=== PATIENT | male | born 1950 | race Caucasian/White ===

== ENCOUNTER 2018-04-14 11:20 | Inpatient (IN) | payer OTHER ==
--- NOTE | 2018-04-14 11:50 | PDOC ---
History of Present Illness - General Stated Complaint: Blood Pressure Problem Time Seen by Provider: 04/14/18 11:47 History Source: EMS Exam Limitations: Clinical Condition (pt mumbling, repetitive speech, will not answer questions (new non-verbal from baseline)) - History of Present Illness Initial Comments: Pt coming from [facility], presenting with AMS and is newly non-verbal. According to EMS, pt was last seen normal last night during medication rounds, and was discovered with AMS this AM (last documented normal by nursing staff night of 04/11). Limited history as pt is non-verbal. Family at bedside. states he was "normal" and verbalizing with no issues yesterday when she spoke to him on the phone at 4pm. She states his abdomen looks mildly distended, but she has not seen him for several weeks since [facility] has [facility] the [facility]. 04/14/18 15:50 Past History - Travel Traveled outside of the country in the last 30 days: No Close contact w/someone who was outside of country & ill: No - Past Medical History Allergies/Adverse Reactions: Allergies Allergy/AdvReac Type Severity Reaction Status Date / Time aripiprazole [From Abilify] Allergy Verified 04/14/18 12:48 chlorpromazine Allergy Verified 04/14/18 12:48 lamotrigine Allergy Verified 04/14/18 12:48 methadone Allergy Verified 04/14/18 12:48 olanzapine Allergy Verified 04/14/18 12:48 quetiapine [From Seroquel] Allergy Verified 04/14/18 12:48 ziprasidone Allergy Verified 04/14/18 12:48 Home Medications: Ambulatory Orders Amantadine HCl [Symmetrel -] 100 mg PO BID 04/14/18 Aspirin 81 mg PO DAILY 04/14/18 Bupropion HCl [Wellbutrin Xl] 300 mg PO DAILY 04/14/18 Calcium Carbonate/Vitamin D3 [Oyster Shell 500-Vit D3 200 Tb] 1 each PO BID 10/25 Carbidopa/Levodopa *Cr* 50/200 [Sinemet *Cr* 50/200 -] 1 combo PO TID 04/14/18 Ciprofloxacin HCl [Cipro] 500 mg PO BID 04/14/18 Docusate Sodium [Colace] 100 mg PO DAILY 04/14/18 Enalapril Maleate [Vasotec] 10 mg PO DAILY 04/14/18 Fenofibrate Nanocrystallized [Fenofibrate] 160 mg PO DAILY 04/14/18 Gabapentin 300 mg PO TID 04/14/18 Glipizide 10 mg PO DAILY 04/14/18 Magnesium Hydroxide [Milk of Magnesia] 400 mg PO PRN 04/14/18 Metoprolol Tartrate [Lopressor] 50 mg PO BID 04/14/18 Ranitidine HCl [Zantac] 150 mg PO HS 04/14/18 Rivastigmine Tartrate [Rivastigmine] 3 mg PO BID 04/14/18 Review of Systems - Review of Systems Able to Perform ROS?: No (AMS, unable to obtain) Is the patient limited Irish proficient: No *Physical Exam - Physical Exam General Appearance: Yes: Nourished, Appropriately Dressed, Moderate Distress ( Pt non-verbal, appears agitated and diaphoretic. Became hypotensive (90s/70s)), Obese. No: Alcohol on Breath, Intoxicated HEENT: positive: EOMI, ALYSHA, Normal ENT Inspection, Symmetrical, TMs Normal, Pharynx Normal, Hearing Grossly Normal. negative: Normal Voice (pt has minimal speech), Scleral Icterus (R), Scleral Icterus (L), Pharyngeal Erythema, Tonsillar Exudate, Tonsillar Erythema, Nasal Congestion, Rhinorrhea, Hearing Decreased, TM Bulging, TM Dull, TM Erythema Neck: positive: Trachea midline, Normal Thyroid, Supple. negative: Tender, Rigid, Lymphadenopathy (R), Lymphadenopathy (L), Rigidity Respiratory/Chest: positive: Lungs Clear, Normal Breath Sounds. negative: Chest Tender, Respiratory Distress, Accessory Muscle Use, Decreased Breath Sounds, Crackles, Wheezing Cardiovascular: positive: Regular Rhythm, Regular Rate, S1, S2. negative: Edema , JVD, Murmur Vascular Pulses: Carotid (R): 4+, Carotid (L): 4+ Gastrointestinal/Abdominal: positive: Normal Bowel Sounds, Soft, Protuberent, Hernia (large abdominal hernia, observed when pt sitting up, easily compressible ). negative: Tender, Flat, Organomegaly, Pulsatile Mass, Guarding, Rebound, Mass Male Genitalia: positive: normal genitalia. negative: discharge Rectal Exam: positive: deferred Lymphatic: negative: Adenopathy, Tenderness Musculoskeletal: positive: Normal Inspection. negative: CVA Tenderness, Decreased Range of Motion, Vertebral Tenderness Extremity: positive: Normal Capillary Refill, Normal Inspection, Normal Range of Motion, Pelvis Stable. negative: Tender, Pedal Edema, Calf Tenderness, Erythema Integumentary: positive: Normal Color, Warm, Diaphoresis (diaphoretic face). negative: Dry, Erythema, Jaundice, Ecchymosis Neurologic: positive: assembler product II-XII NML intact (pt can follow commands, assembler product grossly intact), Alert, Normal Response, Motor Strength 5/5. negative: Fully Oriented, Normal Mood/Affect (parroting some phrases, minimally verbal, but responds apporpriately to yes/no questions), EOM Palsy, Facial Droop, Sensory Deficit ED Treatment Course - LABORATORY CBC & Chemistry Diagram: 04/14/18 12:05 04/14/18 12:05 Medical Decision Making - Medical Decision Making Pt was seen at bedside, also will be seen by attending Dr. Garland. Pt coming from [facility], presenting with AMS and is newly non-verbal. According to EMS, pt was last seen normal last night during medication rounds, and was discovered with AMS this AM (last documented normal by nursing staff night of 04/11). Limited history as pt is non-verbal. PE showed hypotension (BP 92/79), rectal temp 99.7. Pt very diaphoretic and agitated. Pt will mumble and shake his head yes/no to questions. He also follows commands (moving extremities, motor strength intact). Pt denies any abdominal tenderness and does not grimace with palpation. Abdominal hernia, which is easily compressible, no abdominal wall ecchymosis. Considering stroke (due to aphasia) vs infectious causes (UTI) vs abdominal pathology (obstruction, bleed). Ordered work-up including sepsis work-up (blood/urine cultures, CBC, CMP, lactic , coags, UA), type & screen, chest x-ray, and head CT non-contrast. Provided 2 L NS and 1 g ofirmev for improvement of fever, potential sepsis. Will continue to reassess pt and monitor for symptomatic improvement. 04/14/18 12:04 Chest x-ray portable at bedside. Labs drawn and sent to lab, pending results. Pt will be taken to head CT scan non-contrast. ECG showed normal sinus rhythm, normal intervals, HR 83 04/14/18 12:10 Straight cath placed for UA and culture. 11/05/18 12:36 CBC WNL. CMP showed glucose 128, trop <.02. 04/14/18 12:44 [id number] RAD/CHEST X-RAY PORTABLE* Portable chest: Cardiomegaly 2 AP views of the chest reveal a prominent mediastinum with clear lungs and sharp angles. Soft tissues are intact. There are degenerative changes. Correlation recommended. 04/14/18 13:34 Labs generally benign. Nursing staff will perform straight catheter for UA sample. Pt being taken for CT abd/pelvis with IV contrast to r/o bleed or obstruction, as pt abdomen distended. Pt is poor historian (limited verbal). 04/14/18 14:05 CT head showed no global atrophy and chronic changes, no acute pathology. 04/14/18 14:27 CT abd/pelvis will be completed without contrast, as radiology refused to use contrast without family members consent. Pt is presenting ac[facility] ill from prison with no family members present. 04/14/18 14:33 Blood type O+ 04/14/18 14:41 Family at bedside. states he was "normal" and verbalizing with no issues yesterday when she spoke to him on the phone at 4pm. She states his abdomen looks mildly distended, but she has not seen him for several weeks since he has been at the prison. Pending results of CT abd/pelvis. Dr. Serrato performing bedside US now. Unable to obtain UA sample at this time, as pt fighting straight catheter. Pt provided 2 L IV fluids, will continue to monitor for urine output. 04/14/18 15:[address] Renata Klein for admission. Bedside US showed abdominal hernia, but no free fluid. 04/14/18 15:[address] Klein who will admit to inpatient floor. Starting 1 g Ceftriaxone IV for UTI coverage. 04/14/18 16:01 [id number] CT/ABDOMEN & PELVIS CT W/O CONTR Change in mental status. Hypotensive. Rule out bleed CT scan of the abdomen pelvis without oral and intravenous contrast Coronal and sagittal reformatted images were obtained No prior is available for comparison. There are mild atelectatic changes in lingular segment of the left upper lobe and in the right middle lobe. There are also mild the bibasal atelectatic changes and a trace of bilateral pleural effusion. The heart is within normal limits in size The liver is enlarged measuring 21.5 cm in craniocaudal length with mild decrease in attenuation suggestive of a fatty liver. Patient is status post cholecystectomy. Evaluation of the spleen and pancreas appear unremarkable. Nondistended stomach limiting evaluation of its wall. Both adrenal glands are within normal limits in size with an approximately 4 mm calcific density in the right adrenal gland which is nonspecific. There is a punctate nonobstructing stone in the right mid kidney, axial image 72. Another punctate nonobstructing stone is seen in its lower pole. Both kidneys appear otherwise unremarkable without evidence of hydroureteronephrosis or ureteral stone, bilaterally. Moderately distended urinary bladder without wall thickening. There is no evidence of small bowel obstruction. Normal-appearing terminal ileum and appendix. Normal stool burden in the colon without wall thickening. Perirectal and pericecal fat are clear . No free air, free fluid or enlarged lymph nodes are identified. Normal size abdominal aorta with tiny calcific atheromatous plaques present. Note is made of a small fatcontaining umbilical hernia. Visualized osseous structures appear intact with mild degenerative disc disease at L5-S1 level. There is mild compression of T11 vertebral body, likely chronic with anterior spondylosis at T11-T12 level and moderate degenerative disc disease. Impression: Hepatomegaly with suggestion of hepatic steatosis. 2 tiny punctate nonobstructing right renal stones. Status post cholecystectomy. Small fat-containing umbilical hernia. No CT evidence of an acute process in the abdomen and pelvis. There is a trace of bilateral pleural effusion as well as mild atelectatic changes in included portion of the right middle lobe and lingular segment of the left upper lobe. 04/15/18 11:56 *DC/Admit/Observation/Transfer Diagnosis at time of Disposition: Altered mental status Qualifiers: Altered mental status type: unspecified Qualified Code(s): R41.82 - Altered mental status, unspecified Hypotension Qualifiers: Hypotension type: other hypotension type Qualified Code(s): I95.89 - Other hypotension - Discharge Dispostion Condition at time of disposition: Stable Decision to Admit order: Yes - Referrals - Patient Instructions - Post Discharge Activity
--- NOTE | 2018-04-14 11:57 | PDOC ---
Attending Attestation - Resident Resident Name: Ofelia Ohara - ED Attending Attestation I have performed the following: I have examined & evaluated the patient, The case was reviewed & discussed with the resident, I agree w/resident's findings & plan, Exceptions are as noted - Medical Decision Making 04/14/18 12:26 68y M hx of hypertension, CAD, GERD, vascular dementia presents from [facility] for evluation of AMS - per NH staff, pt was noted to be changed in his mental status recently. Upon arrival, pt grunts/mumbles but seems to be responding appropriately to commands. Non verbal currently (at baseline he is verbal). nonfocal neuro exam. no complaints of pain or discomfort, but unlear how reliable historian is ddx - cva, metabolic derangement, occult infection, schizophrenia will obtain blood worik, ct head, ua will reassess 04/14/18 13:26 A portion of this note was documented by scribe services under my direction. I have reviewed the details of the note, within reason, and agree with the documentation with the following case summary and management plan written by me 04/14/18 13:55 pts albs reviewed pt abd slightly protuberent, and he seems to moan more when i press on it - will obtain CT of abdomen <Derian Garland - Last Filed: 04/14/18 13:55> - HPI HPI: 04/14/18 13:46 " The patient is a 68 year old male, Full-Code, with a significant past medical history of hypertension, CAD, GERD, vascular dementia with behavioral disturbance, Parkinson's disease, schizophrenia, diabetes, who presents to the emergency department via ems from [facility] for concern of altered mental status with last known well being Saturday. As per nursing staff, the patient walks and is verbal at baseline, and was not verbally responding today. However, the onset of AMS is unclear because as per nursing staff from [facility] the patient seemed well last night when given his nightly medications but there is no documented verbal assessment. - Physicial Exam PE: 04/14/18 13:46 GENERAL: (+) The patient is mildly diaphoretic, awake, alert. Nontoxic - in no acute distress. mumbles in response to questions HEAD: Normocephalic, atraumatic. EYES: extraocular movements intact, sclera anicteric, conjunctiva clear. ENT: Normal voice, Moist mucous membranes. NECK: Normal range of motion, supple LUNGS: Breath sounds equal, clear to auscultation bilaterally. No wheezes, no rhonchi, no rales. HEART: Regular rate and rhythm, without murmur, rub or gallop. ABDOMEN: (+) obese. Soft, nontender, No guarding, no rebound. No CVA tenderness EXTREMITIES: Normal range of motion, trace edema, no calf tenderness NEUROLOGICAL: (+)Grunting with selective and appropriate speech. No facial assymetry, moving all 4 extremities spontaneously and symmetrically. PSYCH: unable to assess SKIN: Warm, Dry, normal turgor - Medical Decision Making 04/14/18 13:47 Documentation prepared by Nayely Zapata, acting as medical registrar for Derian Garland MD EXAM#: TYPE/EXAM: RESULT: [id number] RAD/CHEST X-RAY PORTABLE* Portable chest: Cardiomegaly 2 AP views of the chest reveal a prominent mediastinum with clear lungs and sharp angles. Soft tissues are intact. There are degenerative changes. Correlation recommended. Reported By: Gold Valles MD 04/14/18 1322 EXAM#: TYPE/EXAM: RESULT: [id number] CT/HEAD CT WITHOUT CONTRAST Cranial CT without contrast IMPRESSION: No CT evidence of acute intracranial pathology. Reported By: Alfredo Aguirre MD 04/14/18 1418 04/14/18 15:50 <Nayely Zapata - Last Filed: 04/14/18 15:50> Heart Score/ECG Review - ECG Impressions Comment:: 04/14/18 13:25 Twelve-lead EKG was performed and reviewed by me. There is normal sinus rhythm with a normal rate. Rate of 83 The axis is normal. The intervals are normal. There is normal R wave progression There are no ST or T wave abnormalities. Impression: Normal twelve-lead EKG <Derian Garland - Last Filed: 04/14/18 13:55>
[2018-04-14] MEDS ORDERED: SODIUM CHLORIDE 2,000 ML IV STA (12:10)
[2018-04-14 12:13] LABS: BASO % 1.2 % (0-2.0); EOS % 5.9 % (0-4.5); HEMATOCRIT 38.4 % (35.4-49); HEMOGLOBIN 13.4 GM/dL (11.7-16.9); LYMPH % 24.2 % (8-40); MCH 32.2 pg (25.7-33.7); MCHC 34.9 g/dl (32.0-35.9); MEAN CELL VOLUME 92.3 fl (80-96); MEAN PLT VOLUME 10.4 fl (7.5-11.1); MONO % 12.2 % (3.8-10.2); NEUT % 56.5 % (42.8-82.8); PLATELET COUNT 237 K/MM3 (134-434); RBC 4.17 M/mm3 (4.00-5.60); RDW 13.8 % (11.9-15.9)
[2018-04-14 12:40] LABS: ALBUMIN 3.6 g/dl (3.4-5.0); ALK PHOS 72 U/L (45-117); ANION GAP 9 MMOL/L (8-16); BILIRUBIN,TOTAL 0.7 mg/dL (0.2-1); BLOOD UREA NITROGEN 20 mg/dL (7-18); CALCIUM 9.3 mg/dL (8.5-10.1); CHLORIDE 106 mmol/L (98-107); CO2 25 mmol/L (21-32); CREATININE 1.1 mg/dL (0.55-1.3); GLUCOSE,RANDOM 128 mg/dL (74-106); PHOSPHOROUS 2.2 mg/dL (2.5-4.9); POTASSIUM 4.1 mmol/L (3.5-5.1); SGOT/AST 35 U/L (15-37); SGPT/ALT 13 U/L (13-61); SODIUM 140 mmol/L (136-145); TOT PROT 6.5 g/dl (6.4-8.2)
[2018-04-14] MEDS ORDERED: ACETAMINOPHEN 1000 MG/100 ML VIAL (NON FORMULARY) IVPB ONE (13:34)
[2018-04-14] MEDS ORDERED: ACETAMINOPHEN INJECTION 100 ML IVPB ONE (13:47)
--- NOTE | 2018-04-14 14:39 | EKG ---
Test Reason : Blood Pressure : / mmHG Vent. Rate : 083 BPM Atrial Rate : 083 BPM P-R Int : 194 ms QRS Dur : 082 ms QT Int : 356 ms P-R-T Axes : 062 048 042 degrees QTc Int : 418 ms NORMAL SINUS RHYTHM NORMAL ECG NO PREVIOUS ECGS AVAILABLE Confirmed by MICAH SEPULVEDA MD ([id number]) on 04/14/2018 2:39:02 PM Referred By: Confirmed By:MICAH SEPULVEDA MD
[2018-04-14] MEDS ORDERED: CEFTRIAXONE 1 GM in DEXTROSE 5%-WATER - 100 ML IVPB ONE (16:00)
[2018-04-14] MEDS ORDERED: VANCOMYCIN 1 GRAM (PRE-DOCKED) 1,000 MG/250 ML BAG IVPB ONE (16:09)
[2018-04-14] MEDS ORDERED: CEFTRIAXONE 1 GM/50 ML BAG ONE (16:10)
[2018-04-14 17:57] LABS: INR 1.1 (0.83-1.09)
[2018-04-14] MEDS ORDERED: METOPROLOL TARTRATE 50 MG TABLET (FP) PO ONE (20:41)
[2018-04-14] MEDS ORDERED: METOPROLOL TARTRATE 50 MG TABLET (FP) ONE (21:20)
[2018-04-15 00:06] VITALS: BMI 34.9
[2018-04-15 11:03] LABS: URINE APPEARANCE CLEAR; URINE BILIRUBIN NEGATIVE (<2.0 mg/dL); URINE COLOR YELLOW; URINE GLUCOSE (UA) NEGATIVE (NEGATIVE); URINE KETONE TRACE (NEGATIVE); URINE LEUK ESTERASE NEGATIVE (NEGATIVE); URINE NITRITE NEGATIVE (NEGATIVE); URINE PROTEIN NEGATIVE (NEGATIVE); URINE UROBILINOGEN NEGATIVE mg/dL (0.2-1.0)
--- NOTE | 2018-04-15 11:25 | CONSULT ---
Admitting History and Physical - Primary Care Physician PCP: Jennifer Crawford - Admission History of Present Illness: Per admission note,68y M hx of hypertension, CAD, GERD, vascular dementia presents from [facility] for evluation of AMS - per [facility] staff, pt was noted to be changed in his mental status recently. Upon arrival, pt grunts/mumbles but seems to be responding appropriately to commands. Non verbal currently (at baseline he is verbal). nonfocal neuro exam. normally verbal pt presented yesterday to ER with "mumbling, repetitive speech, will not answer questions." CT head (-) Selected Entries 04/15/18 06:00 Temperature 98.2 F Laboratory Tests 04/14/18 12:05 WBC 8.0 History Source: Medical Record Limitations to Obtaining History: Clinical Condition, Dementia - Advance Directives Advance Directives: Yes: MOLST - Smoking History Smoking history: Unknown if ever smoked Have you smoked in the past 12 months: No - Alcohol/Substance Use Hx Alcohol Use: No History - Admission Reason For Visit: AMS\\HYPERTENSION - Diagnostics X-ray: Report Reviewed CT Scan: Report Reviewed - General Mental Status: Awake and Alert, Able to Follow Commands, Forgetful, Vague, Confused, Flat Affect Attention: Distractible, Mild Impairment Ability to Follow Directions: Good Head/Neck Control: Fair - Hearing Hearing: Functional Hearing: Normal Speech Evaluation - Communication Primary Language: SPANISH Communication: Yes: Simple Responses Oral Expression Ability: Yes: Mild Impairment, Moderate Impairment - Speech Production Dysarthria: Yes: Hypokinetic (baseline speech production?) Able to Make Needs Known: Yes: Mildly Impaired, Moderately Impaired Intelligibility: Yes: Mildly Impaired, Moderately Impaired - Speech Characteristics Voice Loudness: Mildly Soft/Quiet, Moderately Soft/Quiet Voice Pitch: Yes: Normal Voice Phonatory-based Quality: Yes: Normal Speech Clarity: < 50% Nasal Resonance: Normal Articulation: Yes: Imprecise Rate of Speech: Too Fast (Bursts of speech, multifactorial-vascular dementia with behavioral disturbance, Parkinson's disease, schizophrenia) - Language/Auditory Comprehension Follows: Yes: 1 Stage Simple Commands Observation: Able to respond to yes/no queries: Yes, Comprehends Conversational Speech: Yes - Language/Verbal Expression Able to Respond to Simple Queries: Yes: Mildly Impaired Functional Communication Status: Yes: Mildly Impaired, Moderately Impaired - Swallow Evaluation/Bedside Assessment Current Nutritional Intake: Regular, Thin Liquids Oral Secretions: Yes: WFL Dentition: Yes: Adequate, Missing Teeth Facial Symmetry at Rest: Facial Droop Left (slight? baseline?) Lingual Movement: Normal, Symmetric Lingual Movement Strgth Against Opposition: Reduced Laryngeal Elevation: WFL Laryngeal Movement: Able to Palpate Rate of Intake: Impulsive (repeatedly took bites of cracker without chewing. With instructions to chew/swallow, overtly tolerated solid bolus. 3 oz water (- ) but pt reports sticking of food in his throat and occasionally choking on liquids.) Bolus Size: Small Labial Seal: WFL Chewing: Impaired Oral Prep Time: Increased Pocketing: Present Bilaterally (Pt reports needing to drink to wash down food.) Timing of Swallow: WFL Coughing/Throat Clear: No Change in Voice: No Recommendations - Speech Evaluation, Impression/Plan Impression: Speech deficits noted in ER have cleared? TIA?ddx? Presently bursts of low volume, rapid speech, multifactorial-vascular dementia with behavioral disturbance, Parkinson's disease, schizophrenia. Impulsive PO intake with pt repeatedly taking bites of cracker without chewing. With instructions to chew/swallow, overtly tolerated solid bolus. 3 oz water (-) but pt reports sticking of food in his throat and occasionally choking on liquids. Pt reports needing to drink to wash down food. - Dysphagia Impressions/Plan Swallowing Skills: Impaired Dysphagia Impressions: Mild Impairment, Moderate Impairment *Silent aspiration: cannot be R/O at bedside Dysphagia Treatment Plan: Small Bites, Chin Tuck/Down, Trial Feedings, Safe Rate , 1/2 tsp. at a time, OOB for meals, OOB for 1 h. after meals, Other ( supervision, monitor tolerance) - Recommendations Diet Consistency: Dysphagia Whole (chopped meat) Medication Administration: Whole with water Liquids: Thin Liquids
--- NOTE | 2018-04-15 12:41 | HP ---
Admitting History and Physical - Primary Care Physician PCP: Renata Klein - Admission Chief Complaint: AMS History of Present Illness: ER HISTORY - History of Present Illness Initial Comments: Pt coming from [facility], presenting with AMS and is newly non-verbal. According to EMS, pt was last seen normal last night during medication rounds, and was discovered with AMS this AM (last documented normal by nursing staff night of 04/11). Limited history as pt is non-verbal. Family at bedside. states he was "normal" and verbalizing with no issues yesterday when she spoke to him on the phone at 4pm. She states his abdomen looks mildly distended, but she has not seen him for several weeks [facility]. 04/14/18 15:50 Angie seen by me on the floors Was sent from [facility] for AMS He was also hallucinating there- was being treated for possible UTI No fever Pt is verbal- he is answering questions but speech is limited no distress History Source: Medical Record, Transfer Record Limitations to Obtaining History: Poor Historian - Past Medical History HIGH WORKER: Yes: Parkinson's Cardiovascular: Yes: HTN Psych: Yes: Schizophrenia - Advance Directives Advance Directives: Yes: MOLST - Smoking History Smoking history: Unknown if ever smoked Have you smoked in the past 12 months: No - Alcohol/Substance Use Hx Alcohol Use: No Home Medications - Allergies Allergies/Adverse Reactions: Allergies Allergy/AdvReac Type Severity Reaction Status Date / Time aripiprazole [From Abilify] Allergy Verified 04/14/18 12:48 chlorpromazine Allergy Verified 04/14/18 12:48 lamotrigine Allergy Verified 04/14/18 12:48 methadone Allergy Verified 04/14/18 12:48 olanzapine Allergy Verified 04/14/18 12:48 quetiapine [From Seroquel] Allergy Verified 04/14/18 12:48 ziprasidone Allergy Verified 04/14/18 12:48 - Home Medications Home Medications: Ambulatory Orders Amantadine HCl [Symmetrel -] 100 mg PO BID 04/14/18 Aspirin 81 mg PO DAILY 04/14/18 Bupropion HCl [Wellbutrin Xl] 300 mg PO DAILY 04/14/18 Calcium Carbonate/Vitamin D3 [Oyster Shell 500-Vit D3 200 Tb] 1 each PO BID 10/25 Carbidopa/Levodopa *Cr* 50/200 [Sinemet *Cr* 50/200 -] 1 combo PO TID 04/14/18 Ciprofloxacin HCl [Cipro] 500 mg PO BID 04/14/18 Docusate Sodium [Colace] 100 mg PO DAILY 04/14/18 Enalapril Maleate [Vasotec] 10 mg PO DAILY 04/14/18 Fenofibrate Nanocrystallized [Fenofibrate] 160 mg PO DAILY 04/14/18 Gabapentin 300 mg PO TID 04/14/18 Glipizide 10 mg PO DAILY 04/14/18 Magnesium Hydroxide [Milk of Magnesia] 400 mg PO PRN 04/14/18 Metoprolol Tartrate [Lopressor] 50 mg PO BID 04/14/18 Ranitidine HCl [Zantac] 150 mg PO HS 04/14/18 Rivastigmine Tartrate [Rivastigmine] 3 mg PO BID 04/14/18 Review of Systems - Review of Systems Constitutional: denies: Chills, Fever Cardiovascular: denies: Chest Pain, Palpitations, Shortness of Breath Respiratory: denies: Cough Gastrointestinal: denies: Abdominal Pain Physical Examination Vital Signs: Vital Signs Temperature 98.2 F 04/15/18 06:00 Pulse Rate 98 H 04/15/18 06:00 Respiratory Rate 20 04/15/18 06:00 Blood Pressure 148/67 04/15/18 06:00 O2 Sat by Pulse Oximetry (%) 98 04/15/18 00:12 Constitutional: Yes: No Distress, Calm Cardiovascular: Yes: Regular Rate and Rhythm Respiratory: Yes: CTA Bilaterally Gastrointestinal: Yes: Normal Bowel Sounds, Soft, Abdomen, Obese. No: Tenderness Edema: No Neurological: Yes: Alert, Aphasia (limited speech), Tremors, Other (rigidity) Labs: CBC, BMP 04/14/18 12:05 04/14/18 12:05 Imaging - Results Chest X-ray: Image Reviewed (clear) Cat Scan: Report Reviewed (CT head-negativem CT abd- no acute pathology) EKG: Image Reviewed (NSR) Problem List - Problems (1) Parkinson disease Code(s): G20 - PARKINSON'S DISEASE (2) Altered mental status Code(s): R41.82 - ALTERED MENTAL STATUS, UNSPECIFIED Qualifiers: Altered mental status type: unspecified Qualified Code(s): R41.82 - Altered mental status, unspecified Assessment/Plan PLAN Possible Parkinsons ?TIA ? Neurology eval check carotid doppler continue with meds panculture- r/o infectious source speech eval
[2018-04-15] MEDS: GABAPENTIN 300 MG CAPSULE (FP) PO SCH ×2 (14:54→22:54)
[2018-04-15] MEDS ORDERED: PT OWN MED DRAWER 7, Y5N ONE (16:26)
[2018-04-15] MEDS ORDERED: RANITIDINE HCL 150 MG TABLET (FP) PO SCH (22:00)
[2018-04-15] MEDS: METOPROLOL TARTRATE 50 MG TABLET (FP) PO SCH (22:54)
[2018-04-15] MEDS: AMANTADINE HCL 100 MG TABLET PO SCH (22:55)
[2018-04-15] MEDS: HEPARIN NA (PORCINE) 5,000 UNITS/ML 1ML VIAL SQ SCH (23:02)
[2018-04-16] MEDS ORDERED: LORazepam 1 MG TABLET PO ONE (01:58)
[2018-04-16] MEDS: GABAPENTIN 300 MG CAPSULE (FP) PO SCH (06:42)
[2018-04-16] MEDS: glipiZIDE 10 MG TABLET (FP) PO SCH (06:42)
[2018-04-16] MEDS ORDERED: ENALAPRIL MALEATE 10 MG TABLET (FP) PO SCH (10:00)
--- NOTE | 2018-04-16 10:05 | CON.NEURO ---
Consult - History of Present Illness History of Present Illness: Pt coming from [facility], presenting with AMS and is newly non-verbal. According to EMS, pt was last seen normal last night during medication rounds, and was discovered with AMS this AM (last documented normal by nursing staff night of 04/11). Limited history is confused. As per chart, states he was "normal" and verbalizing with no issues yesterday when she spoke to him on the phone at 4pm. She states his abdomen looks mildly distended, but she has not seen him for several weeks [facility] this AM, confused, not oriented to place, yr-- follows basic requests. denies YADAV or focal c/o CT HD (-) Dopplers (-) - Past Medical History [employer]: Yes: Parkinson's Cardio/Vascular: Yes: HTN Psych: Yes: Schizophrenia - Alcohol/Substance Use Hx Alcohol Use: No - Smoking History Smoking history: Unknown if ever smoked Have you smoked in the past 12 months: No Home Medications - Allergies Allergies/Adverse Reactions: Allergies Allergy/AdvReac Type Severity Reaction Status Date / Time aripiprazole [From Abilify] Allergy Verified 04/14/18 12:48 chlorpromazine Allergy Verified 04/14/18 12:48 lamotrigine Allergy Verified 04/14/18 12:48 methadone Allergy Verified 04/14/18 12:48 olanzapine Allergy Verified 04/14/18 12:48 quetiapine [From Seroquel] Allergy Verified 04/14/18 12:48 ziprasidone Allergy Verified 04/14/18 12:48 - Home Medications Home Medications: Ambulatory Orders Amantadine HCl [Symmetrel -] 100 mg PO BID 04/14/18 Aspirin 81 mg PO DAILY 04/14/18 Bupropion HCl [Wellbutrin Xl] 300 mg PO DAILY 04/14/18 Calcium Carbonate/Vitamin D3 [Oyster Shell 500-Vit D3 200 Tb] 1 each PO BID 10/25 Carbidopa/Levodopa *Cr* 50/200 [Sinemet *Cr* 50/200 -] 1 combo PO TID 04/14/18 Ciprofloxacin HCl [Cipro] 500 mg PO BID 04/14/18 Docusate Sodium [Colace] 100 mg PO DAILY 04/14/18 Enalapril Maleate [Vasotec] 10 mg PO DAILY 04/14/18 Fenofibrate Nanocrystallized [Fenofibrate] 160 mg PO DAILY 04/14/18 Gabapentin 300 mg PO TID 04/14/18 Glipizide 10 mg PO DAILY 04/14/18 Magnesium Hydroxide [Milk of Magnesia] 400 mg PO PRN 04/14/18 Metoprolol Tartrate [Lopressor] 50 mg PO BID 04/14/18 Ranitidine HCl [Zantac] 150 mg PO HS 04/14/18 Rivastigmine Tartrate [Rivastigmine] 3 mg PO BID 04/14/18 Physical Exam-Neuro Vital Signs: Vital Signs Temperature 97.8 F 04/16/18 06:00 Pulse Rate 89 04/16/18 06:00 Respiratory Rate 20 04/16/18 06:00 Blood Pressure 125/64 04/16/18 06:00 O2 Sat by Pulse Oximetry (%) 98 04/15/18 21:00 Labs: CBC, BMP 04/14/18 12:05 04/14/18 12:05 INR, PTT INR 1.10 (0.83-1.09) H 04/14/18 12:28 - Neuro Exam Level Of Consciousness: Yes: Alert (awake, poor attention, R L confusion, EOMI, no facial, motor mild astrexis, no focal weakness, neck supple ) Imaging - Results Cat Scan: Report Reviewed, Image Reviewed Problem List - Problems (1) Altered mental status Code(s): R41.82 - ALTERED MENTAL STATUS, UNSPECIFIED Qualifiers: Altered mental status type: unspecified Qualified Code(s): R41.82 - Altered mental status, unspecified (2) Parkinson disease Code(s): G20 - PARKINSON'S DISEASE Assessment/Plan According to EMS, pt was last seen normal last night during medication rounds, and was discovered with AMS this AM (last documented normal by nursing staff night of 04/11). Limited history is confused. As per chart, states he was "normal" and verbalizing with no issues yesterday when she spoke to him on the phone at 4pm. She states his abdomen looks mildly distended, but she has not seen him for several weeks [facility] this AM, confused, not oriented to place, yr-- follows basic requests. denies YADAV or focal c/o CT HD (-) Dopplers (-) LFTS TSH UA NL Impression : appears to have a delirium, ? metabolic/toxic VS RX induced doubt meningitis or a seizure, stroke doubt NMS 1) hold gabapentin, amantidine; 2) can continue SINEMET for now 3) to better decipher if there were any recent medication changes and who is his primary neuro 4) check tox screen 5) check CPK 6) MRI BRAIN DR BARRERA
[2018-04-16] MEDS ORDERED: PT OWN MED DRAWER 7, Y5N ONE (10:41)
[2018-04-16] MEDS: METOPROLOL TARTRATE 50 MG TABLET (FP) PO SCH ×2 (10:47→22:23)
[2018-04-16] MEDS: ASPIRIN 81 MG CHEWABLE TABLETS PO SCH (10:47)
[2018-04-16] MEDS: DOCUSATE SODIUM 100 MG CAPSULE (FP) PO SCH (10:48)
[2018-04-16] MEDS: HEPARIN NA (PORCINE) 5,000 UNITS/ML 1ML VIAL SQ SCH ×2 (10:48→22:23)
[2018-04-16] MEDS: FENOFIBRIC ACID 135 MG CAP PO SCH (10:50)
--- NOTE | 2018-04-16 11:17 | PN ---
Progress Note (short form) - Note Progress Note: Awake and talkative now He was trying get out of bed yesterday no complaints spoke with Neurology Vital Signs - 24 hr 04/15/18 04/15/18 04/16/18 15:14 21:00 06:00 Temperature 98.0 F 98.2 F 97.8 F Pulse Rate 97 H 67 89 Respiratory 20 20 20 Rate Blood Pressure 146/91 127/63 125/64 O2 Sat by Pulse 98 Oximetry (%) 04/16/18 11:00 Temperature 98.1 F Pulse Rate 82 Respiratory 17 Rate Blood Pressure 99/54 L O2 Sat by Pulse Oximetry (%) Current Medications Generic Name Dose Route Start Last Admin Trade Name Freq PRN Reason Stop Dose Admin Aspirin 81 mg 04/16/18 10:00 04/16/18 10:47 Asa - PO 81 mg DAILY MARILYN Administration Bupropion HCl 300 mg 04/16/18 10:00 04/16/18 10:51 Wellbutrin Xl - PO 300 mg DAILY MARILYN Administration Docusate Sodium 100 mg 04/16/18 10:00 04/16/18 10:48 Colace - PO 100 mg DAILY MARILYN Administration Enalapril Maleate 10 mg 04/16/18 10:00 04/16/18 10:47 Vasotec - PO Not Given DAILY MARILYN Fenofibric Acid 135 mg 04/16/18 10:00 04/16/18 10:50 Trilipix - PO 135 mg DAILY MARILYN Administration Glipizide 10 mg 04/16/18 07:00 04/16/18 06:42 Glucotrol - PO 10 mg DAILY@0700 MARILYN Administration Heparin Sodium (Porcine) 5,000 unit 04/15/18 22:00 04/16/18 10:48 Heparin - SQ 5,000 unit BID [facility] Administration Metoprolol Tartrate 50 mg 04/15/18 22:00 04/16/18 10:47 Lopressor - PO Not Given BID [facility] Laboratory Results - last 24 hr 04/16/18 04/16/18 04/16/18 01:42 06:25 06:25 POC Glucometer 164 Hemoglobin A1c % 7.4 H Triglycerides Cancelled Cholesterol Cancelled Total LDL Cholesterol Cancelled HDL Cholesterol Cancelled Vitamin B12 439 TSH 0.78 Free T4 1.35 H RPR Titer 04/16/18 04/16/18 06:25 06:38 POC Glucometer 128 Hemoglobin A1c % Triglycerides Cholesterol Total LDL Cholesterol HDL Cholesterol Vitamin B12 TSH Free T4 RPR Titer Nonreactive S1 S2 RRR Lungs clear Abd- soft, NT No edema PLAN Meds reconciled spoke with Neurology Problem List - Problems (1) Parkinson disease Code(s): G20 - PARKINSON'S DISEASE (2) Altered mental status Code(s): R41.82 - ALTERED MENTAL STATUS, UNSPECIFIED Qualifiers: Altered mental status type: unspecified Qualified Code(s): R41.82 - Altered mental status, unspecified
[2018-04-16] MEDS ORDERED: LORazepam 2 MG/ML SDV VIAL IVPUSH ONE (11:25)
[2018-04-16] MEDS: RIVASTIGMINE TARTRATE 3 MG PO SCH (11:26)
[2018-04-16] MEDS: AMANTADINE HCL 100 MG TABLET PO SCH (11:26)
[2018-04-16 11:53] LABS: CHOLESTEROL 134 mg/dL (50-200); HDL CHOLESTEROL 43 mg/dL (40-60); TRIGLYCERIDES 170 mg/dL (0-150)
[2018-04-17] MEDS ORDERED: glipiZIDE 5 MG TABLET (FP) ONE (06:03)
[2018-04-17] MEDS: glipiZIDE 10 MG TABLET (FP) PO SCH (06:39)
--- NOTE | 2018-04-17 10:08 | PN ---
Progress Note (short form) - Note Progress Note: Awake, but mumbling no complaints no complaints spoke with Neurology Vital Signs - 24 hr Vital Signs - 24 hr 04/16/18 04/16/18 04/16/18 11:00 14:51 21:00 Temperature 98.1 F 98.8 F Pulse Rate 82 85 Respiratory 17 22 H 20 Rate Blood Pressure 99/54 L 122/69 O2 Sat by Pulse 97 Oximetry (%) 04/16/18 04/17/18 22:00 06:00 Temperature 98.3 F Pulse Rate 90 83 Respiratory 20 20 Rate Blood Pressure 125/80 138/75 O2 Sat by Pulse Oximetry (%) Current Medications Generic Name Dose Route Start Last Admin Trade Name Santosq PRN Reason Stop Dose Admin Aspirin 81 mg 04/16/18 10:00 04/16/18 10:47 Asa - PO 81 mg DAILY MARILYN Administration Bupropion HCl 300 mg 04/16/18 10:00 04/16/18 10:51 Wellbutrin Xl - PO 300 mg DAILY MARILYN Administration Docusate Sodium 100 mg 04/16/18 10:00 04/16/18 10:48 Colace - PO 100 mg DAILY MARILYN Administration Enalapril Maleate 5 mg 04/17/18 10:00 Vasotec - PO DAILY MARILYN Fenofibric Acid 135 mg 04/16/18 10:00 04/16/18 10:50 Trilipix - PO 135 mg DAILY MARILYN Administration Glipizide 10 mg 04/16/18 07:00 04/17/18 06:39 Glucotrol - PO 10 mg DAILY@0700 MARILYN Administration Heparin Sodium (Porcine) 5,000 unit 04/15/18 22:00 04/16/18 22:23 Heparin - SQ Not Given BID MARILYN Metoprolol Tartrate 50 mg 04/15/18 22:00 04/16/18 22:23 Lopressor - PO 50 mg BID MARILYN Administration Laboratory Results - last 24 hr 04/16/18 04/17/18 04/17/18 07:10 06:25 06:36 POC Glucometer 166 Creatine Kinase 294 Creatine Kinase Index 0.9 CK-MB (CK-2) 2.7 Triglycerides 170 H Cholesterol 134 Total LDL Cholesterol 69 HDL Cholesterol 43 S1 S2 RRR Lungs clear Abd- soft, NT No edema PLAN Meds reconciled spoke with Neurology avoid Parkinson meds dc planning Problem List - Problems (1) Parkinson disease Code(s): G20 - PARKINSON'S DISEASE (2) Altered mental status Code(s): R41.82 - ALTERED MENTAL STATUS, UNSPECIFIED Qualifiers: Altered mental status type: unspecified Qualified Code(s): R41.82 - Altered mental status, unspecified
--- NOTE | 2018-04-17 10:09 | DS ---
Physical Examination Vital Signs: Vital Signs Temperature 98.3 F 04/17/18 06:00 Pulse Rate 83 04/17/18 06:00 Respiratory Rate 20 04/17/18 06:00 Blood Pressure 138/75 04/17/18 06:00 O2 Sat by Pulse Oximetry (%) 97 04/16/18 21:00 Constitutional: Yes: No Distress Cardiovascular: Yes: Regular Rate and Rhythm Respiratory: Yes: CTA Bilaterally Gastrointestinal: Yes: Normal Bowel Sounds, Soft. No: Tenderness Edema: No Labs: CBC, BMP 04/14/18 12:05 04/14/18 12:05 Discharge Summary Reason For Visit: AMS\HYPERTENSION Current Active Problems Altered mental status (Acute) Hypotension (Acute) Parkinson disease (Acute) Hospital Course: admitted for AMS- CT head negative, Carotid doppler negative- thought to be due to TIA but his medications caused his mental status to be altered He has extensive psych history Seen by Neurology Meds reviewed and Parkinons meds dc Advised no Dementia meds or Parkinsons meds He needs Psych follow up in the [facility] for pr to [place] Condition: Stable - Instructions Referrals: Renata Klein MD [Primary Care Provider] - Disposition: ASSISTED FACILITY - Home Medications Comprehensive Discharge Medication List: Ambulatory Orders Amantadine HCl [Symmetrel -] 100 mg PO BID 04/14/18 Aspirin 81 mg PO DAILY 04/14/18 Bupropion HCl [Wellbutrin Xl] 300 mg PO DAILY 04/14/18 Calcium Carbonate/Vitamin D3 [Oyster Shell 500-Vit D3 200 Tb] 1 each PO BID 10/25 Carbidopa/Levodopa *Cr* 50/200 [Sinemet *Cr* 50/200 -] 1 combo PO TID 04/14/18 Ciprofloxacin HCl [Cipro] 500 mg PO BID 04/14/18 Docusate Sodium [Colace] 100 mg PO DAILY 04/14/18 Enalapril Maleate [Vasotec] 10 mg PO DAILY 04/14/18 Fenofibrate Nanocrystallized [Fenofibrate] 160 mg PO DAILY 04/14/18 Gabapentin 300 mg PO TID 04/14/18 Glipizide 10 mg PO DAILY 04/14/18 Magnesium Hydroxide [Milk of Magnesia] 400 mg PO PRN 04/14/18 Metoprolol Tartrate [Lopressor] 50 mg PO BID 04/14/18 Ranitidine HCl [Zantac] 150 mg PO HS 04/14/18 Rivastigmine Tartrate [Rivastigmine] 3 mg PO BID 04/14/18
[2018-04-17] MEDS: DOCUSATE SODIUM 100 MG CAPSULE (FP) PO SCH (10:24)
[2018-04-17] MEDS: METOPROLOL TARTRATE 50 MG TABLET (FP) PO SCH ×2 (10:24→21:13)
[2018-04-17] MEDS: HEPARIN NA (PORCINE) 5,000 UNITS/ML 1ML VIAL SQ SCH ×2 (10:24→21:13)
[2018-04-17] MEDS: ASPIRIN 81 MG CHEWABLE TABLETS PO SCH (10:24)
[2018-04-17] MEDS: FENOFIBRIC ACID 135 MG CAP PO SCH (10:25)
[2018-04-17] MEDS: ENALAPRIL MALEATE 5 MG TABLET (FP) PO SCH (10:25)
--- NOTE | 2018-04-17 18:24 | PN ---
Progress Note, Physician History of Present Illness: more awake today, closer to baseline, murmurs but follows requests, can sip water by himself - Current Medication List Current Medications: Active Medications Aspirin (Asa -) 81 mg PO DAILY [facility] Last Admin: 04/17/18 10:24 Dose: 81 mg Bupropion HCl (Wellbutrin Xl -) 300 mg PO DAILY [facility] Last Admin: 04/17/18 10:25 Dose: 300 mg Docusate Sodium (Colace -) 100 mg PO DAILY [facility] Last Admin: 04/17/18 10:24 Dose: 100 mg Enalapril Maleate (Vasotec -) 5 mg PO DAILY [facility] Last Admin: 04/17/18 10:25 Dose: 5 mg Fenofibric Acid (Trilipix -) 135 mg PO DAILY [facility] Last Admin: 04/17/18 10:25 Dose: 135 mg Glipizide (Glucotrol -) 10 mg PO DAILY@0700 [facility] Last Admin: 04/17/18 06:39 Dose: 10 mg Heparin Sodium (Porcine) (Heparin -) 5,000 unit SQ BID [facility] Last Admin: 04/17/18 10:24 Dose: 5,000 unit Metoprolol Tartrate (Lopressor -) 50 mg PO BID [facility] Last Admin: 04/17/18 10:24 Dose: 50 mg - Objective Vital Signs: Vital Signs Temperature 98.7 F 04/17/18 18:00 Pulse Rate 72 04/17/18 18:00 Respiratory Rate 20 04/17/18 18:00 Blood Pressure 104/62 04/17/18 18:00 O2 Sat by Pulse Oximetry (%) 97 04/16/18 21:00 Labs: CBC, BMP 04/14/18 12:05 04/14/18 12:05 INR, PTT INR 1.10 (0.83-1.09) H 04/14/18 12:28 Problem List - Problems (1) Altered mental status Code(s): R41.82 - ALTERED MENTAL STATUS, UNSPECIFIED Qualifiers: Altered mental status type: unspecified Qualified Code(s): R41.82 - Altered mental status, unspecified (2) Parkinson disease Code(s): G20 - PARKINSON'S DISEASE Assessment/Plan 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
[2018-04-18] MEDS ORDERED: glipiZIDE 5 MG TABLET (FP) ONE (06:19)
[2018-04-18] MEDS: glipiZIDE 10 MG TABLET (FP) PO SCH (06:43)
[2018-04-18] MEDS ORDERED: INSULIN (NOVOLOG) ASPART 100 UNITS/ML 10ML VIAL ONE (07:03)
[2018-04-18 07:25] VITALS: TEMP 98.6
[2018-04-18] MEDS ORDERED: PT OWN MED DRAWER 7, Y5N ONE (10:48)
[2018-04-18] MEDS: METOPROLOL TARTRATE 50 MG TABLET (FP) PO SCH (10:50)
[2018-04-18] MEDS: ASPIRIN 81 MG CHEWABLE TABLETS PO SCH (10:50)
[2018-04-18] MEDS: FENOFIBRIC ACID 135 MG CAP PO SCH (10:50)
[2018-04-18] MEDS: ENALAPRIL MALEATE 5 MG TABLET (FP) PO SCH (10:50)
[2018-04-18] MEDS: HEPARIN NA (PORCINE) 5,000 UNITS/ML 1ML VIAL SQ SCH (10:50)
[2018-04-18] MEDS: DOCUSATE SODIUM 100 MG CAPSULE (FP) PO SCH (10:50)
[2018-04-18 10:56] VITALS: BP 125/68; PULSE 74
== END 2018-04-18 11:53 | DRG 56 ==
LOC: JER 11:20 → JERBED 16:03 → J5S 22:55
PROVIDERS: ADMIT Internal Medicine; ATTEND Internal Medicine
DX: G20 Parkinson's disease (principal); G92 Toxic encephalopathy; F01.51 Vascular dementia, unspecified severity, with behavioral disturbance; J90 Pleural effusion, not elsewhere classified; J98.11 Atelectasis; I95.9 Hypotension, unspecified; I10 Essential (primary) hypertension; I25.10 Atherosclerotic heart disease of native coronary artery without angina pectoris; K21.9 Gastro-esophageal reflux disease without esophagitis; F01.50 Vascular dementia, unspecified severity, without behavioral disturbance, psychotic disturbance, mood disturbance, and anxiety; F20.9 Schizophrenia, unspecified; E11.9 Type 2 diabetes mellitus without complications; T42.8X5A Adverse effect of antiparkinsonism drugs and other central muscle-tone depressants, initial encounter; Z79.84 Long term (current) use of oral hypoglycemic drugs
CPT/HCPCS: 36415; 70450-TC; 71045-TC-FY; 74176-TC; 80053; 80061; 81003; 82550; 82553; 82607; 82962; 83036; 83605; 83721; 83735; 84100; 84439; 84443; 84484; 85025; 85610; 85730; 86593; 86850; 86900; 86901; 87040; 87086; 93005; 93010; 93880-TC; 97116-GP; 97161-GP; 99284-25; J0131; J1644; J7030

== ENCOUNTER 2023-12-31 02:22 | Inpatient (IN) | payer OTHER ==
[2023-12-31 02:52] VITALS: BMI 24.3
[2023-12-31] MEDS ORDERED: VANCOMYCIN/WATER 1250 MG 1,250 MG/250 ML BAG IVPB ONE (03:45)
[2023-12-31] MEDS: VANCOMYCIN/WATER 1250 MG 1,250 MG/250 ML BAG IVPB ONE (03:57)
[2023-12-31 04:26] LABS: MCH 29.1 pg (25.7-33.7); MCHC 33.4 g/dl (32.0-35.9); MEAN CELL VOLUME 87.1 fl (80-96); MEAN PLT VOLUME 9.3 fl (7.5-11.1); PLATELET COUNT 292 10^3/uL (134-434); RBC 4.13 M/mm3 (4.00-5.60); WHITE BLOOD COUNT 13.6 K/mm3 (4.0-10.0)
[2023-12-31 04:27] LABS: INR 1.04 (0.83-1.09); PROTHROMBIN TIME (PATIENT) 11.9 SEC (9.7-13.0)
[2023-12-31 04:30] LABS: ACTIVATED PTT 26.6 SECONDS (25.2-36.5)
[2023-12-31 04:48] LABS: CALCIUM 8.7 mg/dL (8.5-10.1)
[2023-12-31 04:49] LABS: ALBUMIN 2.6 g/dl (3.4-5.0); BLOOD UREA NITROGEN 12.1 mg/dL (7-18)
[2023-12-31 04:52] LABS: CREATININE 0.8 mg/dL (0.55-1.3)
[2023-12-31 04:54] LABS: BILIRUBIN,TOTAL 0.5 mg/dL (0.2-1)
[2023-12-31] MEDS ORDERED: ACETAMINOPHEN INJECTION 100 ML IVPB ONE (06:24)
[2023-12-31] MEDS: ACETAMINOPHEN 1000 MG/100 ML BAG IVPB ONE (06:50)
[2023-12-31] MEDS: SODIUM CHLORIDE 1,000 ML IV SCH (06:52)
[2023-12-31 07:17] LABS: ANISOCYTOSIS 3+; MACROCYTOSIS 3+; ROULEAU 2+
[2023-12-31 07:31] LABS: MAGNESIUM 1.7 mg/dL (1.8-2.4)
[2023-12-31 07:35] LABS: PHOSPHOROUS 2.6 mg/dL (2.5-4.9)
[2023-12-31] MEDS: INSULIN ASPART SLIDING SCALE (NOVOLOG) 1 VIAL SQ SCH (11:49)
[2023-12-31] MEDS: METOPROLOL TARTRATE 50 MG TABLET (FP) PO SCH (11:57)
[2023-12-31] MEDS: DOCUSATE SODIUM 100 MG CAPSULE (FP) PO SCH (11:57)
[2023-12-31] MEDS: PIPERACILLIN/TAZOB 3.375 GM 3.375 GM in DEXTROSE 5%-WATER - 50 ML IVPB SCH (11:58)
[2023-12-31] MEDS: PANTOPRAZOLE 20 MG TABLET PO SCH (15:00)
[2023-12-31] MEDS ORDERED: VANCOMYCIN 1,000 MG in DEXTROSE 5%-WATER - 250 ML IVPB SCH (16:00)
[2023-12-31] MEDS ORDERED: VANCOMYCIN/WATER FOR INJ (PEG) 1,000 MG/200 ML BAG IVPB SCH (16:00)
[2023-12-31] MEDS: ENALAPRIL MALEATE 5 MG TABLET PO SCH (16:20)
[2023-12-31] MEDS: MAGNESIUM HYDROX 2400MG/30ML ORAL SUSPENSION 30 ML CUP PO SCH (16:20)
[2023-12-31] MEDS: FENOFIBRIC ACID 135 MG CAP PO SCH (16:20)
[2023-12-31] MEDS: GABAPENTIN 300 MG CAPSULE PO SCH (16:20)
[2023-12-31] MEDS: VANCOMYCIN/WATER FOR INJ (PEG) 1,000 MG/200 ML BAG IVPB SCH (17:11)
[2024-01-01 10:10] LABS: HEMATOCRIT 34.1 % (35.4-49); HEMOGLOBIN 11.4 GM/dL (11.7-16.9); MCH 29.7 pg (25.7-33.7); MCHC 33.5 g/dl (32.0-35.9); MEAN CELL VOLUME 88.7 fl (80-96); MEAN PLT VOLUME 9.2 fl (7.5-11.1); PLATELET COUNT 298 10^3/uL (134-434); RBC 3.85 M/mm3 (4.00-5.60); RDW 13.9 % (11.9-15.9); WHITE BLOOD COUNT 11.7 K/mm3 (4.0-10.0)
[2024-01-01 10:33] LABS: POTASSIUM 3.9 mmol/L (3.5-5.1)
[2024-01-01 10:43] LABS: ALBUMIN 2.5 g/dl (3.4-5.0); CALCIUM 8.5 mg/dL (8.5-10.1)
[2024-01-01 10:44] LABS: BLOOD UREA NITROGEN 5.4 mg/dL (7-18)
[2024-01-01 10:46] LABS: CREATININE 0.8 mg/dL (0.55-1.3)
[2024-01-01 10:47] LABS: BILIRUBIN,TOTAL 0.5 mg/dL (0.2-1)
[2024-01-01 11:11] LABS: PLATELET ESTIMATE ADEQUATE
[2024-01-02 07:21] LABS: HEMATOCRIT 34.7 % (35.4-49); HEMOGLOBIN 11.5 GM/dL (11.7-16.9); MCH 29.5 pg (25.7-33.7); MCHC 33.3 g/dl (32.0-35.9); MEAN CELL VOLUME 88.5 fl (80-96); MEAN PLT VOLUME 8.8 fl (7.5-11.1); PLATELET COUNT 313 10^3/uL (134-434); RBC 3.91 M/mm3 (4.00-5.60)
[2024-01-02 07:42] LABS: POTASSIUM 4.1 mmol/L (3.5-5.1)
[2024-01-02 07:45] LABS: CALCIUM 8.3 mg/dL (8.5-10.1)
[2024-01-02 07:46] LABS: ALBUMIN 2.3 g/dl (3.4-5.0); BLOOD UREA NITROGEN 7.1 mg/dL (7-18)
[2024-01-02 07:49] LABS: CREATININE 0.7 mg/dL (0.55-1.3)
[2024-01-02 07:50] LABS: BILIRUBIN,TOTAL 0.9 mg/dL (0.2-1); TOT PROT 5.6 g/dl (6.4-8.2)
[2024-01-02 11:44] LABS: ANISOCYTOSIS 0; HELMET CELLS 0; HOWELL-JOLLY BODIES 0; MACROCYTOSIS 0; OVALOCYTE 0; ROULEAU 0; SICKELED CELLS 0; TARGET CELLS 0; TEAR DROP CELLS 0; TOXIC GRANULATION 0
[2024-01-02 15:48] VITALS: RESP 18
[2024-01-03 06:46] VITALS: BP 118/69; PULSE 65; TEMP 98.2
[2024-01-03] MEDS: AMINO ACIDS/PROTEIN HYDROLYS 30 ML LIQUID.PKT PO SCH (10:05)
== END 2024-01-03 14:30 | DRG 603 ==
LOC: JER 02:22 → JERBED 06:18 → J6S 09:17 → J8W 01-01 16:01
PROVIDERS: ADMIT Internal Medicine; ATTEND Internal Medicine
DX: L02.31 Cutaneous abscess of buttock (principal); K62.5 Hemorrhage of anus and rectum; F20.9 Schizophrenia, unspecified; E11.9 Type 2 diabetes mellitus without complications; K21.9 Gastro-esophageal reflux disease without esophagitis; I10 Essential (primary) hypertension; I25.10 Atherosclerotic heart disease of native coronary artery without angina pectoris; E78.5 Hyperlipidemia, unspecified; F01.50 Vascular dementia, unspecified severity, without behavioral disturbance, psychotic disturbance, mood disturbance, and anxiety; N40.0 Benign prostatic hyperplasia without lower urinary tract symptoms; G20.A1 Parkinson's disease without dyskinesia, without mention of fluctuations; D72.829 Elevated white blood cell count, unspecified
CPT/HCPCS: 36415; 72193-TC; 80048; 80053; 80061; 82962; 83036; 83735; 84100; 85025; 85610; 85730; 87040; 87070; 87186; 87205; 99285-25; J0131; Q9967

== ENCOUNTER 2024-04-08 10:43 | Day surgery (SDC) | payer OTHER ==
[2024-04-07 10:53] VITALS: BMI 30.1
[2024-04-08 11:44] VITALS: TEMP 97.7
[2024-04-08 12:48] VITALS: BP 116/58; PULSE 95; RESP 19
== END 2024-04-08 13:25 ==
LOC: FASU-ENDO 10:43
PROVIDERS: ATTEND Internal Medicine Gastroenterology
PROC: 0DBL8ZX Excision of Transverse Colon, Via Natural or Artificial Opening Endoscopic, Diagnostic (ICD-10-PCS; 2024-04-08)
PROC: 0DBM8ZX Excision of Descending Colon, Via Natural or Artificial Opening Endoscopic, Diagnostic (ICD-10-PCS; 2024-04-08)
PROC: 0DBK8ZX Excision of Ascending Colon, Via Natural or Artificial Opening Endoscopic, Diagnostic (ICD-10-PCS; principal; 2024-04-08 12:16)
DX: Z12.11 Encounter for screening for malignant neoplasm of colon (principal); K63.89 Other specified diseases of intestine; K64.1 Second degree hemorrhoids
CPT/HCPCS: 82962; 88305-TC